=== PATIENT | male | born 1985 | race Asian ===

== ENCOUNTER 2016-09-11 15:23 | Emergency (ER) | payer BC ==
[2016-09-11 15:49] VITALS: BP 141/92
--- NOTE | 2016-09-11 16:07 | UC ---
UC General HPI - HPI Summary HPI Summary: complaint of epigastric pain that started 3 days ago dull pain is constant for 3 days after eating the pain increases resting makes the pain recede complaint of nausea,vomiting and fever that started 1 week ago vomited 1x today, vomited 3x yesterday denies diarrhea, normal stool, denies blood in stool denies shortness of breath, diaphoresis, dizziness, palpations saw PCP l2/21 start on metoprolol for HTN, tachycardia- normal ECG and and given zofran he is taking it only 1x day yesterday without fever denies headache denies dysuria - History of Current Complaint Chief Complaint: UCAbdominalPain Stated Complaint: NAUSEA, AND VOMITING Time Seen by Provider: 09/11/16 15:59 Hx Obtained From: Patient Associated Signs & Symptoms: Positive: Decreased Oral Intake - Allergy/Home Medications Allergies/Adverse Reactions: Allergies Allergy/AdvReac Type Severity Reaction Status Date / Time No Known Allergies Allergy Verified 09/11/16 15:49 Home Medications: Home Medications Metoprolol Succinate Er* 25 mg PO DAILY 09/11/16 [History Confirmed 09/11/16] Multiple Vitamins W/ Minerals [Multivitamin Adults] 1 tab PO DAILY 09/11/16 [ History Confirmed 09/11/16] Ondansetron TAB* [Zofran Tab*] 1 tab PO DAILY 09/11/16 [History Confirmed ] PMH/Surg Hx/FS Hx/Imm Hx Previously Healthy: No - enteritis Endocrine History Of: Denies: Diabetes Cardiovascular History Of: Reports: Hypertension Denies: Cardiac Disorders Respiratory History Of: Denies: Asthma - Surgical History Surgical History: None - Family History Known Family History: Negative: Cardiac Disease, Hypertension, Diabetes - Social History Occupation: Employed Full-time Lives: With Family Alcohol Use: None Substance Use Type: None Smoking Status (MU): Never Smoked Tobacco Have You Smoked in the Last Year: No Review of Systems Constitutional: Fever Skin: Negative Eyes: Negative ENT: Negative Respiratory: Negative Cardiovascular: Negative Gastrointestinal: Abdominal Pain Genitourinary: Negative Motor: Negative Neurovascular: Negative Musculoskeletal: Negative Neurological: Negative Psychological: Negative All Other Systems Reviewed And Are Negative: Yes Physical Exam Triage Information Reviewed: Yes Appearance: Well-Appearing, No Pain Distress, Well-Nourished Vital Signs: Initial Vital Signs Pulse 91 01/01/17 15:42 Resp 16 09/11/16 15:42 BP 141/92 09/11/16 15:42 Pulse Ox 100 09/11/16 15:42 Vital Signs Reviewed: Yes Eyes: Positive: Conjunctiva Clear ENT: Positive: Pharynx normal, TMs normal. Negative: Nasal congestion Neck: Positive: Supple, No Lymphadenopathy Respiratory: Positive: Lungs clear, Normal breath sounds, No respiratory distress Cardiovascular: Positive: RRR, No Murmur, Pulses Normal Abdomen Description: Positive: Nontender, No Organomegaly, Soft. Negative: CVA Tenderness (R), CVA Tenderness (L), Distended, Guarding Bowel Sounds: Positive: Present Musculoskeletal: Positive: No Edema Neurological: Positive: Alert Psychological Exam: Normal Skin Exam: Normal Course/Dx - Course Course Of Treatment: discussed case with Dr Palacio. ECG shows ST elevations in V2 and V3. fever for approx 3-4 weeks. nausea and vomiting for approx 2 weeks. d/t acute changes in ECG , non tender abdomen -will send to ED for further evaluation. refuses to take EMS and his will drive him to the [facility] ED - Differential Dx - Multi-Symptom Differential Diagnoses: Other - GERD, gastroenterirtis, VT, cardiac ischemia, ulcers Provider Diagnoses: epigastric pain - Physician Notifications Discussed Patient Care With: Dr Hayden Time Discussed With Above Provider: 16:43 Discharge - Discharge Plan Condition: Stable Disposition: TRANS HIGHER LVL OF CARE FAC Referrals: No Primary Care Phys,NOPCP [Primary Care Provider] - [facility] PHYSICIAN REFERRAL [Outside]
== END 2016-09-11 16:48 | disposition left against medical advice (07) ==
LOC: UCEAST 15:23
DX: R10.13 Epigastric pain (principal); R11.2 Nausea with vomiting, unspecified
CPT/HCPCS: 93005; 99212; G0463

== ENCOUNTER 2016-09-11 17:04 | Emergency (ER) | payer BC ==
[2016-09-11] MEDS ORDERED: NS 0.9% 1000 ML* 1,000 ML IV ONE (18:40)
--- NOTE | 2016-09-11 18:54 | ED ---
Abdominal Pain/Male - HPI Summary HPI Summary: 31 M w/ PMH of tachycardia presents with epigastric pain since Monday. He states symptoms started Monday with nausea and vomiting. He states that the pain increases with food. He has had normal BM. Denies any diarrhea or constipation or blood in stool. He has never experienced this pain before. He denies any chest pain, palpitations, current fever, or SOB. He states he has had fevers since the middle of this month but not today. He was seen at urgent care and sent here for evaluation of pain. The had an EKG performed there and read it as abnormal. States did not take metoprolol today. - History of Current Complaint Chief Complaint: EDNauseaVomitDiarrh Stated Complaint: NAUSEA/UPPER ABD PAIN Time Seen by Provider: 09/11/16 18:32 Pain Intensity: 2 - Allergies/Home Medications Allergies/Adverse Reactions: Allergies Allergy/AdvReac Type Severity Reaction Status Date / Time No Known Allergies Allergy Verified 09/11/16 15:49 PMH/Surg Hx/FS Hx/Imm Hx Endocrine/Hematology History: Denies: Hx Diabetes Cardiovascular History: Reports: Hx Hypertension, Other Cardiovascular Problems/ Disorders - tachycardia Respiratory History: Denies: Hx Asthma Infectious Disease History: No Infectious Disease History: Denies: Traveled Outside the [place] in Last 30 Days - Family History Known Family History: Negative: Cardiac Disease, Hypertension, Diabetes - Social History Alcohol Use: None Substance Use Type: Reports: None Smoking Status (MU): Never Smoked Tobacco Have You Smoked in the Last Year: No Review of Systems Positive: Fever Negative: Palpitations, Chest Pain Negative: Shortness Of Breath Positive: Abdominal Pain - epigastric, Vomiting, Nausea. Negative: Diarrhea All Other Systems Reviewed And Are Negative: Yes Physical Exam Triage Information Reviewed: Yes Vital Signs On Initial Exam: Initial Vitals Temp Pulse Resp BP Pulse Ox 98.1 F 101 16 135/77 100 09/11/16 17:08 09/11/16 17:08 09/11/16 17:08 09/11/16 17:08 09/11/16 17:08 Vital Signs Reviewed: Yes Appearance: Positive: Well-Appearing Skin: Positive: Warm, Dry Head/Face: Positive: Normal Head/Face Inspection Eyes: Positive: Normal, Conjunctiva Clear ENT: Positive: Normal ENT inspection, Pharynx normal, TMs normal Respiratory/Lung Sounds: Positive: Clear to Auscultation, Breath Sounds Present Cardiovascular: Positive: Normal, RRR Abdomen Description: Positive: Nontender, Soft, Other: - neg lobato. Negative: Distended, Guarding Bowel Sounds: Positive: Present Diagnostics - Vital Signs Vital Signs Temp Pulse Resp BP Pulse Ox 09/11/16 17:08 98.1 F 101 16 135/77 100 - Laboratory Result Diagrams: 09/11/16 19:00 09/11/16 19:00 Lab Statement: Any lab studies that have been ordered have been reviewed, and results considered in the medical decision making process. - Ultrasound No standard instances Ultrasound Interpretation: No Acute Changes - IMPRESSION: 1. SONOGRAPHIC FINDINGS OF THE GALLBLADDER ARE MOST SUGGESTIVE OF A PARTIALLY CALCIFIED GALLBLADDER POLYP. THIS STRUCTURE DOES NOT EXHIBIT ANY PATHOLOGIC CHARACTERISTICS AND IS OF DOUBTFUL CLINICAL CONCERN. FOLLOW-UP IMAGING IN 2-3 MONTHS CAN BE ACQUIRED TO ASCERTAIN STABILITY UNLESS OUTSIDE IMAGING CAN BE MADE AVAILABLE FOR COMPARISON. 2. OTHERWISE NORMAL ULTRASOUND OF THE RIGHT UPPER QUADRANT. Ultrasound Interpretation Completed By: Radiologist - EKG No standard instances Cardiac Rate: NL EKG Rhythm: Atrial Flutter EKG Comparison: Other - no ST changes seen in pervious EKG today Abdominal Pain Fem Course/Dx - Course Course Of Treatment: 31 M w/ PMH of HTN and tachycardia presents for 3 days of epigastric pain and a week of n/v, seen by primary and given zofran which has been taken once a day and states has not helped, on PE states that pressing on abdomen has no effect on pain and has no reproducible pain, seen by urgent care and sent here because saw questionable ST changes, here EKG was normal, ordered labs which were normal except for elevated lymph count which ordered mono which was negative, ordered gallbladder u/s due to n/v, epigastric pain and it was normal, discussed results and started course of famotidine for possible GERD? causing symptoms instructed to follow up with primary patient agrees with plan - Diagnoses Differential Diagnosis/HQI/PQRI: Gall Bladder Disease, Pancreatitis, Peptic Ulcer Disease Provider Diagnoses: Epigastric abdominal pain Discharge - Discharge Plan Condition: Good Disposition: HOME Prescriptions: Famotidine TAB* [Pepcid TAB*] 20 mg PO BID #28 tab Patient Education Materials: Epigastric Pain (ED) Referrals: Mily BEACH,Ángel Elizalde [Primary Care Provider] - Additional Instructions: Take famotidine twice a day starting tomorrow Can take zofran every 6 hours as need for nausea Follow up with primary care physician within 5 days Return to ED if blood in stool, severe nausea and vomiting or any new or worsening symptoms
[2016-09-11 19:27] LABS: Hematocrit 42 % (42-52); Hemoglobin 13.8 g/dl (14.0-18.0); Mean Corpuscular HGB Conc 33 g/dl (31-36); Mean Corpuscular Hemoglobin 27 pg (27-31); Mean Corpuscular Volume 81 fL (80-94); Mean Platelet Volume 7 um3 (7.4-10.4); Red Blood Count 5.19 10^6/ul (4.0-5.4); Red Cell Distribution Width 13 % (10.5-15); White Blood Count 8.3 10^3/ul (3.5-10.8)
[2016-09-11 19:38] LABS: Add Diff/Slide Review? Slide Review Added; Comments Flag Yes
[2016-09-11 19:44] LABS: Albumin 4.2 g/dL (3.2-5.2); BUN/Creatinine Ratio 13.5 (8-20); Calcium 9.1 mg/dL (8.6-10.3); EGFR African American 116.7 (>60); EGFR Non-African American 90.8 (>60); Globulin 3.3 g/dL (2-4); Potassium 3.8 mmol/L (3.5-5.0); Total Bilirubin 0.4 mg/dL (0.2-1.0); Total Protein 7.5 g/dL (6.4-8.9)
--- NOTE | 2016-09-11 19:45 | RAD ---
HISTORY: Right upper quadrant pain. COMPARISONS: None TECHNIQUE: Multiple transverse and longitudinal ultrasound images were obtained of the right upper quadrant. FINDINGS: LIVER: The liver is normal in dimensions and echogenicity. Normal hepatic and portal venous blood flow is duplicated with color flow imaging. There is no gross intrahepatic biliary duct dilatation. GALLBLADDER AND EXTRAHEPATIC BILIARY DUCT: In the lumen of the gallbladder there is an immobile and avascular 3 mm diameter tubular structure exhibiting minimal shadowing. Otherwise the gallbladder lumen is clear. There is no gallbladder wall thickening. There is no pericholecystic fluid or gallbladder wall thickening. The common bile duct measures a maximum diameter of 4 mm. PANCREAS: The portions of the pancreas not obscured by bowel gas are normal in appearance. RIGHT KIDNEY: The right kidney is normal in size, morphology and echogenicity. AORTA AND IVC: The visualized portions are normal in appearance and not pathologically dilated. IMPRESSION: 1. SONOGRAPHIC FINDINGS OF THE GALLBLADDER ARE MOST SUGGESTIVE OF A PARTIALLY CALCIFIED GALLBLADDER POLYP. THIS STRUCTURE DOES NOT EXHIBIT ANY PATHOLOGIC CHARACTERISTICS AND IS OF DOUBTFUL CLINICAL CONCERN. FOLLOW-UP IMAGING IN 2-3 MONTHS CAN BE ACQUIRED TO ASCERTAIN STABILITY UNLESS OUTSIDE IMAGING CAN BE MADE AVAILABLE FOR COMPARISON. 2. OTHERWISE NORMAL ULTRASOUND OF THE RIGHT UPPER QUADRANT.
[2016-09-11 20:05] LABS: Eosinophils % 3 % (0-6); Immature Granulocytes 1 % (0-9); Neutrophil % 49 % (38-83); RBC Morphology Normal (Normal); Reactive Lymph % 22 % (0-6); Toxic Granulation 2+
[2016-09-11 20:06] LABS: EBV Response NO
[2016-09-11 20:14] LABS: Mono Internal Control QC Line Present
[2016-09-11 20:15] LABS: Manual Entry Verification SAM0057
[2016-09-11 20:18] LABS: Urine Bilirubin Negative (Negative); Urine Glucose Negative (Negative); Urine Nitrite Negative (Negative)
[2016-09-11 20:36] VITALS: BP 123/75
== END 2016-09-11 20:35 | disposition home or self-care (01) ==
LOC: ED 17:04
DX: R10.13 Epigastric pain (principal); I10 Essential (primary) hypertension
CPT/HCPCS: 36415; 76705; 80053; 81003; 83605; 83690; 84484; 85025; 86308; 93005; 99212; 99283; G0463

== ENCOUNTER 2018-03-20 20:46 | Emergency (ER) | payer BC ==
[2018-03-20] MEDS ORDERED: Amoxicillin PO (*) 500 MG CAP PO ONE (21:38)
[2018-03-20] MEDS ORDERED: traMADol TAB* 50 MG PO ONE (21:38)
--- NOTE | 2018-03-20 21:39 | UC ---
Dental HPI - HPI Summary HPI Summary: 32 yo male presents with upper left tooth pain for the last 2 days. He called his dentist today, but they cannot see him until 2 days from now. His dentist recommended that he be seen and placed on antibiotics before his visit. He has taken ibuprofen with no relief of pain. He is able to eat and drink. Denies fever, chills. - History of Current Complaint Stated Complaint: TOOTH PAIN Time Seen by Provider: 03/20/18 21:37 Hx Obtained From: Patient Onset/Duration: Gradual Onset Severity: Moderate Pain Intensity: 6 Pain Scale Used: 0-10 Numeric - Allergies/Home Medications Allergies/Adverse Reactions: Allergies Allergy/AdvReac Type Severity Reaction Status Date / Time No Known Allergies Allergy Verified 09/11/16 15:49 PMH/Surg Hx/FS Hx/Imm Hx Previously Healthy: Yes Cardiovascular History: Hypertension GI/ History: Gastroesophageal Reflux - Surgical History Surgical History: None - Family History Known Family History: Negative: Cardiac Disease, Hypertension, Diabetes - Social History Occupation: Employed Full-time Lives: With Family Alcohol Use: None Substance Use Type: None Smoking Status (MU): Never Smoked Tobacco Have You Smoked in the Last Year: No Review of Systems Constitutional: Negative Skin: Negative Eyes: Negative ENT: Dental Pain Respiratory: Negative Cardiovascular: Negative Neurological: Negative Psychological: Negative All Other Systems Reviewed And Are Negative: Yes Physical Exam - Summary Physical Exam Summary: GENERAL: NAD. WDWN. No pain distress. SKIN: No rashes, sores, lesions, or open wounds. HEENT: Ears: Hearing grossly normal. TMs intact, no bulging, erythema, or edema. Nose: NTTP maxillary and frontal sinus. Throat: Posterior oropharynx without exudates, erythema, or tonsillar enlargement. Uvula midline. NECK: Supple. Nontender. No lymphadenopathy. CHEST: No accessory muscle use. Breathing comfortably and in no distress. CV: Pulses intact. Brisk cap refill. NEURO: Alert. PSYCH: Age appropriate behavior. Triage Information Reviewed: Yes Vital Signs: Vital Signs: Temp Pulse Resp BP Pulse Ox 98.8 F 84 16 132/82 98 03/20/18 21:46 03/20/18 21:46 03/20/18 21:46 03/20/18 21:46 03/20/18 21:46 Vital Signs Reviewed: Yes Dental: Positive: Percussion Tenderness @ - Tooth 15, Abscess @ - Tooth 15. Negative: Dental Fracture @, Cellulitis @, Cervical Lymphadenopathy, Bleeding Dental Complaint Course/Dx - Course Course Of Treatment: Dental abscess Tooth 15. Rx for amoxicillin and tramadol for pain. iSTOP Reference #: [id number] - Differential Dx/Diagnosis Provider Diagnoses: Dental abscess Tooth 15 Discharge - Sign-Out/Discharge Documenting (check all that apply): Patient Departure - Discharge Plan Condition: Stable Disposition: HOME Prescriptions: Amoxicillin PO (*) [Amoxicillin 500 MG CAP*] 500 mg PO Q12H #14 cap traMADol TAB* [Ultram*] 50 mg PO Q12H PRN #8 tab MDD 2 PRN Reason: Pain Patient Education Materials: Dental Abscess (ED) Referrals: Mily BEACH,Ángel Elizalde [Primary Care Provider] - Additional Instructions: If you develop a fever, shortness of breath, chest pain, new or worsening symptoms - please call your PCP or go to the ED. 1) Please keep your follow up with your dentist - Billing Disposition and Condition Condition: STABLE Disposition: Home
[2018-03-20 21:52] VITALS: BP 132/82
== END 2018-03-20 21:59 | disposition home or self-care (01) ==
LOC: UCEAST 20:46
DX: K04.7 Periapical abscess without sinus (principal); I10 Essential (primary) hypertension; K21.9 Gastro-esophageal reflux disease without esophagitis
CPT/HCPCS: 99212; A9270-GY; G0463